=== PATIENT | male | born 1950 | race Native Hawaiian/Other Pacific Islander ===

== ENCOUNTER 2016-11-11 06:37 | Day surgery (SDC) | payer OTHER ==
[2016-11-09 11:05] VITALS: BMI 25.0
[2016-11-11] MEDS ORDERED: Midazolam 2 MG/2 ML VIAL ONE (08:25)
[2016-11-11] MEDS ORDERED: Iohexol 350mg/ml 100 ML ONE (08:27)
[2016-11-11] MEDS ORDERED: Iohexol 350mgl/ml 50 ML ONE ×2 (09:01→09:14)
[2016-11-11] MEDS ORDERED: Sodium Chloride 0.9% 500 ML IV SCH (09:45)
[2016-11-14 11:50] VITALS: RESP 18; O2SAT 100
--- NOTE | 2016-11-20 14:01 | CARDCATH ---
PROCEDURE DATE: 11/11/2016 PROCEDURES: 1. Left heart catheterization. 2. LV angiogram. 3. Coronary angiogram. 4. Saphenous vein graft angiogram. 5. Left internal mammary graft angiogram. 6. Ascending aortic root angiogram. 7. Abdominal aortogram and bilateral peripheral arterial angiogram. 8. Radiological supervision and interpretation of the above-mentioned procedures. REFERRING PHYSICIAN: Hugo Zhang MD. PERFORMING PHYSICIAN: Hugo Paul MD CLINICAL INDICATIONS: 1. Abnormal stress test. 2. Angina. 3. Hypertension. 4. History of coronary artery disease, CABG x3. 5. Diabetes. PROCEDURE: After informed consent, the patient was prepped and draped in the usual sterile fashion. A 2% lidocaine was given in the right groin for local anesthesia. Using micropuncture technique, 6-Portuguese sheath was introduced into right common femoral artery. A JL4 6-Portuguese diagnostic catheter engaged into left main coronary artery. Contrast injected and left coronary angiogram was performed. JR4 6-Portuguese catheter was engaged into right coronary artery. Contrast injected and right coronary angiogram was performed. JR4 catheter engaged into saphenous vein graft. Contrast injected. Saphenous vein graft angiogram was done. A 6-Portuguese VALERA catheter was engaged into left internal mammary artery graft. Contrast injected and VALERA graft angiogram was performed. JR4 catheter, 6-Portuguese catheter crossed into left ventricle across the aortic valve. Using hand injection, left ventricular angiogram was performed. Using the pigtail catheter and power injector, abdominal root aortic angiogram was performed. Using the power injector by stationing pigtail in the abdominal aorta, abdominal aortic angiogram and bilateral lower extremity aortic root angiogram was performed. The patient tolerated the procedure well. FINDINGS: 1. Left main coronary artery is patent. 2. Proximal LAD has 90% eccentric calcific stenosis. 3. Left circumflex proximal 99% stenosis. Obtuse marginal 1 artery is 100% occluded. 4. Right coronary artery is very calcific. Mid to distal long 90% to 99% stenosis. There are [id number] collaterals noted. 5. Left internal mammary graft to LAD is patent. 6. Saphenous vein graft to obtuse marginal artery is patent. 7. Saphenous vein graft to RCA is 100% occluded. 8. LV ejection fraction is approximately 60%. Mild anterior wall hypokinesis. EDP is 10. No gradient across the aortic valve. 9. Abdominal root angiogram confirms occlusion of the saphenous vein graft to right coronary artery. 10. Abdominal aortic angiogram demonstrates small abdominal aortic aneurysm. Bilateral iliac arteries and common femoral arteries are patent. IMPRESSION: 1. Coronary artery disease as described above. 2. Recommend aggressive medical management. 3. Recommend followup for abdominal aortic aneurysm as outpatient. Hugo Paul MD
== END 2016-11-11 14:30 | disposition home or self-care (01) ==
LOC: C.CATHLAB 06:37
PROVIDERS: ATTEND Internal Medicine Cardiovascular Disease
DX: R94.39 Abnormal result of other cardiovascular function study (principal); E11.9 Type 2 diabetes mellitus without complications; I10 Essential (primary) hypertension
CPT/HCPCS: 93459; 94770; C1758; C1760; C1769; C1887; J1644; J2250; J3010; J7040; Q9967

== ENCOUNTER 2018-06-13 08:34 | Outpatient (CLI) | payer OTHER | END 2018-06-13 08:35 | disposition home or self-care (01) | LOC: C.LAB 08:34 | DX: E78.2 Mixed hyperlipidemia (principal); E11.9 Type 2 diabetes mellitus without complications; E03.9 Hypothyroidism, unspecified; M10.9 Gout, unspecified ==